=== PATIENT | female | born 2000 | race Caucasian/White ===

== ENCOUNTER 2020-08-22 21:58 | Inpatient (IN) | payer OTHER, MEDICAID ==
[~2020-08-22] VITALS: Ht 154.9 cm; Wt 88.4 kg
--- NOTE | 2020-08-22 22:28 | NUR ---
PT TRANSFERRED FROM [place] FOR SZ ACTIVITY THAT STARTED ON TUESDAY USUALLY AFTER SHE EATS. 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 PT HAD 6 WITNESSED SZ WITH POSTDICTAL PERIOD OF 30 MIN. UPON ARRIVAL PT HAS SZ LIKE ACTIVITY. PT WAS NOT POST DICTAL AFTER. PT IS AAOX4. VSS. AT BEDSIDE. CALL LIGHT IN REACH
--- NOTE | 2020-08-22 22:43 | NUR ---
PT UP TO BATHROOM AND ABLE TO AMBULATE WITH TECH TO ASSIST. VSS. CALL LIGHT IN REACH
--- NOTE | 2020-08-22 23:22 | NUR ---
PT RESTING WITH NO NEEDS AT THIS TIME. CALL LIGHT IN REACH. VSS.
--- NOTE | 2020-08-22 23:34 | NUR ---
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
[2020-08-23] MEDS ORDERED: TEMAZEPAM 15 MG CAPSULE PO PRN
[2020-08-23] MEDS ORDERED: LIDODERM 5% PATCH TD PRN
[2020-08-23] MEDS ORDERED: DOCUSATE 100 MG CAPSULE PO PRN
[2020-08-23] MEDS ORDERED: MELATONIN 5 MG TABLET PO PRN
[2020-08-23] MEDS ORDERED: PROMETHAZINE 25 MG/ML, 1ML IM PRN
[2020-08-23 01:17] VITALS: BP 100/66
[2020-08-23 01:30] VITALS: BP 100/66
[2020-08-23] MEDS ORDERED: LORA10TA75 PO (01:32)
[2020-08-23] MEDS: ACETAMINOPHEN 325 MG TABLET PO PRN ×4 (01:52→21:28)
[2020-08-23 07:19] VITALS: BP 105/71
[2020-08-23] MEDS: LEVETIRACETAM 500 MG TABLET PO SCH ×2 (12:08→21:28)
[2020-08-23 13:42] VITALS: BP 110/73
[2020-08-23] MEDS ORDERED: GADOTERATE 10 MMOL/20ML SYR ONE (15:18)
[2020-08-23 19:46] VITALS: BP 105/68
[2020-08-24 01:38] VITALS: BP 103/68
[2020-08-24 05:00] LABS: BASOPHILS % (AUTO) 1 % (0-1); EOSINOPHILS % (AUTO) 2 % (1-7); LYMPHOCYTES % (AUTO) 35 % (22-44); MEAN CORPUSCULAR HEMOGLOBIN 29.5 pg (27.0-34.8); MEAN CORPUSCULAR HGB CONC 33.6 g/dL (32.4-35.8); MEAN PLATELET VOLUME 8.6 fL (7.4-10.4); MONOCYTES % (AUTO) 6 % (2-9); NEUTROPHILS % (AUTO) 56 % (42-75); PLATELET COUNT 312 x10^3/uL (130-400); RED BLOOD COUNT 4.51 x10^6/uL (3.82-5.3); RED CELL DISTRIBUTION WIDTH 14.9 % (9.6-15.2)
[2020-08-24 05:01] LABS: MD NO
[2020-08-24 05:10] LABS: ANION GAP 4 mmol/L (5-15); CHLORIDE 107 mmol/L (98-107); CREATININE 0.68 mg/dL (0.55-1.02)
[2020-08-24 07:10] VITALS: BP 107/71
[2020-08-24] MEDS: LEVETIRACETAM 500 MG TABLET PO SCH (08:19)
[2020-08-24] MEDS ORDERED: VALPROATE SODIUM 100 MG/ML, 5ML IVPB ONE (10:30)
[2020-08-24] MEDS ORDERED: ACETAMINOPHEN 325 MG TABLET PO PRN (11:00)
[2020-08-24] MEDS ORDERED: VALPROATE SODIUM 1,000 MG in DEXTROSE 5% 100 ML IV ONE (12:30)
[2020-08-24 13:30] VITALS: BP 102/68
[2020-08-24] MEDS ORDERED: VALP250C59 PO (15:30)
[2020-08-24] MEDS ORDERED: ACET325T26 PO (15:30)
[2020-08-24 18:58] VITALS: BP 96/61
[2020-08-24] MEDS: VALPROIC ACID 250 MG CAPSULE PO SCH (19:45)
[2020-08-25 00:54] VITALS: BP 96/64
[2020-08-25 06:42] VITALS: BP 107/70
[2020-08-25] MEDS: VALPROIC ACID 250 MG CAPSULE PO SCH (08:10)
== END 2020-08-25 12:21 | disposition home or self-care (01) | DRG 101 ==
LOC: ED 23:03 → EDIP 08-23 → 5SO 08-23 01:14 → DCLOUNGE 08-25 12:11
PROVIDERS: ADMIT Internal Medicine; ATTEND Internal Medicine
DX: G40.409 Other generalized epilepsy and epileptic syndromes, not intractable, without status epilepticus (principal); E11.9 Type 2 diabetes mellitus without complications; E66.9 Obesity, unspecified; E86.0 Dehydration; G43.009 Migraine without aura, not intractable, without status migrainosus; G51.0 Bell's palsy; J45.909 Unspecified asthma, uncomplicated; Z77.22 Contact with and (suspected) exposure to environmental tobacco smoke (acute) (chronic); Z86.32 Personal history of gestational diabetes; Z88.1 Allergy status to other antibiotic agents; Z88.0 Allergy status to penicillin; Z88.8 Allergy status to other drugs, medicaments and biological substances; Z88.6 Allergy status to analgesic agent; Z68.36 Body mass index [BMI] 36.0-36.9, adult
CPT/HCPCS: 36415; 70553; 80048; 81025; 83036; 84443; 85025; 95819; 99285; G0378; A9575